=== PATIENT | male | born 2000 | race Asian ===

== ENCOUNTER → 2024-12-07 10:38 | Outpatient (REF) | payer OTHER, SELFPAY ==
[2024-12-07 18:47] LABS: Hepatitis B Surface Antibody Negative
[2024-12-09 13:10] LABS: Quantiferon Mitogen minus NIL 9.96 IU/mL; Quantiferon NIL 0.04 IU/mL; Quantiferon Plus TB1 minus NIL 0.01 IU/mL (<=0.34); Quantiferon TB Gold Plus Negative (Negative)
== END ==
LOC: OHS 10:38
PROVIDERS: ATTENDING PHYSICIAN Nurse Practitioner Family
DX: Z23 Encounter for immunization (principal)
CPT/HCPCS: 36415; 86480; 86706

== ENCOUNTER → 2025-04-13 13:27 | Outpatient (REF) | payer OTHER, SELFPAY | LOC: OHS 13:27 | PROVIDERS: ATTENDING PHYSICIAN Nurse Practitioner Family | DX: Z23 Encounter for immunization (principal) | CPT/HCPCS: 36415; 86706 ==